=== PATIENT | female | born 1960 | race Caucasian/White ===

== ENCOUNTER → 2018-04-06 | Outpatient (CLI) | payer BC ==
--- NOTE | 2018-04-06 21:55 | Diagnostic Imaging Report ---
INDICATION: Bilateral breast tenderness. EXAMINATION: Bilateral breast ultrasound. FINDINGS: The bilateral diagnostic mammogram performed earlier today failed to show any sign of malignancy or of an acute abnormality. On this study, there is no discrete solid or cystic mass within either breast. There is no sign of an abscess either. IMPRESSION: There is no evidence for malignancy or for an acute abnormality of either breast. Clinical follow up is recommended. ACR BI-RADS Category 1: Negative. Result letter will be mailed to the patient. Note: At least 10% of breast cancer is not imaged by mammography. Dictated by: Dictated on workstation # [id number]
--- NOTE | 2018-04-07 20:32 | Diagnostic Imaging Report ---
INDICATION: Bilateral breast tenderness. EXAMINATION: Bilateral breast digital diagnostic mammogram with CAD. 3D tomographic images were obtained and reviewed. The current study was also evaluated with a Computer Aided Detection (CAD) system. COMPARISON: None. This is the patient's baseline study. FINDINGS: At this time she does complain of tenderness in both breasts. The fibroglandular tissue in both breasts is heterogeneously dense. This does limit the sensitivity of this exam. There is no primary or secondary sign of malignancy noted. There is no abnormality to account for the patient's breast tenderness. IMPRESSION: 1. There is no evidence for malignancy or for an acute abnormality. 2. Ultrasound is pending for further evaluation. ACR BI-RADS Category 0: Incomplete. (Needs additional imaging evaluation). Result letter will be mailed to the patient. Note: At least 10% of breast cancer is not imaged by mammography. Dictated by: Dictated on workstation # [id number]
== END ==
LOC: RAD 13:12
PROVIDERS: ATTEND Registered Nurse
DX: N64.4 Mastodynia (principal)
CPT/HCPCS: 77066

== ENCOUNTER 2018-05-29 09:00 | Outpatient (CLI) | payer BC ==
[~2018-05-29] VITALS: Ht 162.6 cm; Wt 64.4 kg
[2018-05-29] MEDS ORDERED: LISI10TA2 PO (09:31)
== END 2018-05-29 10:21 | disposition home or self-care (01) ==
LOC: PREOP 09:00
PROVIDERS: ATTEND Surgery
DX: Z01.818 Encounter for other preprocedural examination (principal)

== ENCOUNTER 2018-05-30 09:14 | Day surgery (SDC) | payer BC ==
[~2018-05-30] VITALS: Ht 162.6 cm; Wt 64.4 kg
[~2018-05-30 09:14] MED LIST: LISI10TA2 PO
[2018-05-30] MEDS ORDERED: LACTATED RINGERS 1,000 ML IV ONE (09:16)
[2018-05-30] MEDS ORDERED: MIDAZOLAM 2 MG/2 ML (VERSED) VIAL ONE (09:28)
--- NOTE | 2018-05-30 09:28 | Progress Note-Pre Operative ---
Pre-Operative Progress Note H&P Reviewed The H&P was reviewed, patient examined and no changes noted. Date Seen by Provider: May 30, 2018 Time Seen by Provider: : Date H&P Reviewed: May 30, 2018 Time H&P Reviewed: 09:28 Pre-Operative Diagnosis: screening colonoscopy CRISTIAN LOCKHART DO May 30, 2018 09:28
[2018-05-30] MEDS ORDERED: PROPOFOL INJECTION 50 ML IV ONE (09:29)
[2018-05-30] MEDS ORDERED: LACTATED RINGERS 1,000 ML IV STA (09:36)
[2018-05-30 09:41] VITALS: BP 164/81
--- NOTE | 2018-05-30 10:26 | Progress Note-Post Operative ---
Post-Operative Progess Note Surgeon (s)/Credit Cashier (s) Surgeon CRISTIAN LOCKHART DO Credit Cashier: na Pre-Operative Diagnosis screening colonoscopy Post-Operative Diagnosis colon polyps , melanosis coli, Procedure & Operative Findings Date of Procedure 05/30/18 Procedure Performed/Findings colonoscopy c hot bx polypectomy x 3 and snare polypectomy x 1 Anesthesia Type per non destructive testing specialist Estimated Blood Loss Estimated blood loss (mL): none Specimens/Packing Specimens Removed descending and sigmoid polyps CRISTIAN LOCKHART DO May 30, 2018 10:26
--- NOTE | 2018-05-30 10:30 | Discharge Inst-Simple/Standard ---
Discharge Inst-Standard Discharge Medications New, Converted or Re-Newed RX: RX on Chart Patient Instructions/Follow Up Plan of Care/Instructions/FU: 2 weeks [place] Activity as Tolerated: Yes Discharge Diet: Regular Diet CRISTIAN LOCKHART DO May 30, 2018 10:30
[2018-05-30 10:35] VITALS: BP 141/63
[2018-05-30 11:05] VITALS: BP 146/60
[2018-05-30 11:10] VITALS: BP 146/60
--- NOTE | 2018-05-30 13:46 | Anesthesia-General Post-Op ---
MAC Patient Condition Mental Status/LOC: Same as Preop Cardiovascular: Satisfactory Nausea/Vomiting: Absent Respiratory: Satisfactory Pain: Controlled Complications: Absent Post Op Complications Complications None Follow Up Care/Instructions Patient Instructions None needed. Anesthesiology Discharge Order Discharge Order Patient was seen after the procedure and she was doing well, no complaints, stable vital signs, no apparent adverse anesthesia problems. RENATA IRIZARRY DO May 30, 2018 13:46
--- NOTE | 2018-05-30 15:14 | OPERATIVE REPORT ---
DATE OF SERVICE: 05/30/2018 PREOPERATIVE DIAGNOSIS: Screening colonoscopy. POSTOPERATIVE DIAGNOSIS: Colon polyps, melanosis coli. PROCEDURE: Colonoscopy with hot biopsy polypectomy x3 and snare polypectomy x1. SURGEON: Cristian Dugan DO ANESTHESIA: Per MEDIA SALES CONSULTANT. ESTIMATED BLOOD LOSS: None. COMPLICATIONS: None. INDICATIONS: The patient is a 57-year-old female with a need for screening colonoscopy. She understands risks and benefits of procedure and wished to proceed with procedure. Consent was signed in the chart. DESCRIPTION OF PROCEDURE: The patient was taken to the endoscopy suite, placed in left lateral recumbent position. Timeout was performed. A digital rectal exam was performed. There were no palpable polyps, masses or ulcerations. The scope was inserted into the rectum and advanced all the way to the cecum with minimal difficulty. Prep was adequate. Scope was then slowly retracted back. Colon had appearance of melanosis coli throughout the entire colon. There were no polyps, masses or ulcerations in the cecum, ascending and transverse colon. Within the descending colon, 2 small polyps were present to which hot biopsy polypectomy was performed. In the sigmoid colon, a large pedunculated polyp was present to which snare polypectomy was performed. This was greater than 1 cm in size. Scope was then continuously retracted back where another small polyp was present to which hot biopsy polypectomy was performed in the sigmoid colon. Once in the rectum, scope was retroflexed noting no other pathology. Scope was returned to its normal position, slowly withdrawn until completely removed. The patient tolerated procedure well without any complications. She was taken to recovery room in stable condition. RECOMMENDATIONS: The patient will need repeat colonoscopy in 6 months to reevaluate the area due to a large pedunculated polyp. If she has any problems prior to that, she should be reevaluated at that time. Job ID: [id number] DocumentID: [id number] Dictated Date: 05/30/2018 10:34:53 Metal Trim Erector Date: 05/30/2018 15:14:09 Dictated By: CRISTIAN DUGAN DO
== END 2018-05-30 11:12 | disposition home or self-care (01) ==
LOC: ENDO 09:14
PROVIDERS: ATTEND Surgery
DX: Z12.11 Encounter for screening for malignant neoplasm of colon (principal); D12.5 Benign neoplasm of sigmoid colon; K63.5 Polyp of colon; K63.89 Other specified diseases of intestine; I10 Essential (primary) hypertension; K21.9 Gastro-esophageal reflux disease without esophagitis; Z80.0 Family history of malignant neoplasm of digestive organs; Z79.899 Other long term (current) drug therapy; Z87.891 Personal history of nicotine dependence

== ENCOUNTER → 2020-07-28 | Outpatient (CLI) | payer BC ==
[~2020-07-28] MED LIST changes: -LISI10TA2 PO; +LISI10TA25 PO
--- NOTE | 2020-07-28 10:37 | Diagnostic Imaging Report ---
INDICATION: Routine screening. COMPARISON: 04/06/2018. TECHNIQUE: 2D and 3D bilateral screening mammography was performed with CAD. FINDINGS: Scattered fibroglandular densities are identified bilaterally. The parenchymal pattern is stable. No mass or malignant appearing microcalcifications are seen. The axillae are unremarkable. IMPRESSION: No mammographic features suspicious for malignancy are identified. ACR BI-RADS Category 1: Negative. Result letter will be mailed to the patient. Note: At least 10% of breast cancer is not imaged by mammography. Dictated by: Dictated on workstation # [id number]
== END ==
LOC: RAD 08:15
PROVIDERS: ATTEND Registered Nurse
DX: Z12.31 Encounter for screening mammogram for malignant neoplasm of breast (principal)
CPT/HCPCS: 77063; 77067